=== PATIENT | male | born 1990 | race Caucasian/White ===

== ENCOUNTER 2018-10-16 22:05 | Emergency (ER) | payer BC ==
[~2018-10-16] VITALS: Ht 182.9 cm; Wt 66.8 kg
[2018-10-16 23:48] VITALS: BP 123/66
== END 2018-10-16 23:37 | disposition home or self-care (01) ==
LOC: ER 22:06
DX: S56.911A Strain of unspecified muscles, fascia and tendons at forearm level, right arm, initial encounter (principal); Z88.1 Allergy status to other antibiotic agents; Z88.6 Allergy status to analgesic agent; W20.8XXA Other cause of strike by thrown, projected or falling object, initial encounter; Y93.89 Activity, other specified; Y92.89 Other specified places as the place of occurrence of the external cause; Y99.8 Other external cause status
CPT/HCPCS: 29125; 73090; 99283

== ENCOUNTER 2019-07-21 14:57 | Emergency (ER) | payer BC ==
[~2019-07-21] VITALS: Ht 182.9 cm; Wt 65.9 kg
[2019-07-21] MEDS ORDERED: cephalexin 250mg capsule PO ONE (15:25)
[2019-07-21] MEDS ORDERED: acetaminophen 325mg tablet PO ONE (15:25)
[2019-07-21] MEDS ORDERED: LIDOcaine 1% W/epiNEPHrine 1:200,000 10ml vial IJ ONE (15:25)
[2019-07-21] MEDS ORDERED: ondansetron/PF 4mg/2ml inj IV ONE (15:25)
[2019-07-21] MEDS ORDERED: bacitracin 15gm ointment TP ONE (15:25)
[2019-07-21] MEDS ORDERED: CEPH250T PO (18:55)
[2019-07-21 19:17] VITALS: BP 134/65
== END 2019-07-21 19:21 | disposition home or self-care (01) ==
LOC: ER 14:57
DX: S06.0X1A Concussion with loss of consciousness of 30 minutes or less, initial encounter (principal); S01.02XA Laceration with foreign body of scalp, initial encounter; R55 Syncope and collapse; Z98.890 Other specified postprocedural states; Z88.0 Allergy status to penicillin; Z88.5 Allergy status to narcotic agent; Z88.1 Allergy status to other antibiotic agents; Z79.2 Long term (current) use of antibiotics; W18.09XA Striking against other object with subsequent fall, initial encounter; Y93.89 Activity, other specified; Y92.89 Other specified places as the place of occurrence of the external cause; Y99.8 Other external cause status
CPT/HCPCS: 12034; 70450; 72125; 96374; 99285; J2405